=== PATIENT | female | born 1935 | race Two or more races ===

== ENCOUNTER 2018-10-23 17:32 | Emergency (ER) | payer OTHER ==
[~2018-10-23] VITALS: Ht 154.9 cm; Wt 63.5 kg
[2018-10-23 17:37] VITALS: BP 180/90
== END 2018-10-23 19:07 | disposition left against medical advice (07) ==
LOC: EDBD 17:32 → ER 17:38
DX: E16.2 Hypoglycemia, unspecified (principal); Z53.21 Procedure and treatment not carried out due to patient leaving prior to being seen by health care provider
CPT/HCPCS: 82962; 93005